=== PATIENT | female | born 1980 | race African-American/Black ===

== ENCOUNTER 2017-08-09 15:28 | Emergency (ER) | payer MEDICARE, MEDICAID ==
[~2017-08-09] VITALS: Ht 175.3 cm; Wt 136.1 kg
[~2017-08-09 15:28] MED LIST: ACETAMINOPHEN-1 EAC1 PO; ASPIR 8181 MG PO; CARVEDILOL12.5 MG PO; CLEOCIN HCL150 MG PO; HYDROCODONE-AP1 EAC6 PO; IBUPROFEN 800800 M1 PO; KEFLEX500 M1 PO; LISINOPRIL10 MG PO; RESTORIL7.5 M1 PO; TOPAMAX50 MG PO
[2017-08-09] MEDS ORDERED: CLEOCIN HCL150 MG PO (15:54)
[2017-08-09 16:01] VITALS: BP 167/122
== END 2017-08-09 16:02 | disposition home or self-care (01) ==
LOC: M.ERS 15:28
DX: K02.9 Dental caries, unspecified (principal); R22.0 Localized swelling, mass and lump, head; I10 Essential (primary) hypertension; Z88.6 Allergy status to analgesic agent